=== PATIENT | male | born 1950 | race Caucasian/White ===

== ENCOUNTER 2019-05-12 21:31 | Emergency (ER) | payer OTHER ==
[2019-05-12 22:02] VITALS: BP 0/0; PULSE 0; TEMP 99.8; BMI 29.5
--- NOTE | 2019-05-12 22:03 | PDOC ---
Attending Attestation - Resident Resident Name: Edmund Mays - ED Attending Attestation I have performed the following: I have examined & evaluated the patient, The case was reviewed & discussed with the resident, I agree w/resident's findings & plan - HPI HPI: 05/12/19 21:58 Pt comes in cardiac arrest. He is covered in stool. He stooled himself at home and en route to the bathroom he passed out. Daughter and called EMS; CPR inprogress; astystole. At some point pt had ROSC. Pt was down 50 min prioro to arrival; never cardioverted; no Vtach or vfib; received 7 epi and bicard. FS was 147; pt received bicarb; glc; epi x 2 here; Thumper on chest. Pt came intubated. Good breath sounds bilaterally Pt has IO line in plce by EMS; we placed IV in right arm Rectal core temp 98.9F Sono fast normal SOno heart shows no tamponade No cardiac activity TIME OF 9:45PM 05/12/2019 - Physicial Exam PE: 05/12/19 22:02 Eyes fixed and dilated normal temp covered in diarrhea breath sounds with ambu bag equal No rashes no cyanosis Abd soft NT ND Ext no edema - Medical Decision Making 05/12/19 22:03 . ME called by the resident; they refused the case and gave us a case # [id number]. Paperwork will be completed by Dr. Shaw.
--- NOTE | 2019-05-12 22:45 | PDOC ---
History of Present Illness - General Chief Complaint: Cardiac Arrest Stated Complaint: CARDIAC ARREST Time Seen by Provider: 05/12/19 21:50 History Source: EMS, Old Records Exam Limitations: Clinical Condition - History of Present Illness Initial Comments: HPI: 68 y/o male presenting to [facility] ER from home in cardiac arrest. EMS reports the pt was found on the floor of the bathroom in a sinus PEA arrest. CPR was initiated, pt was intubated, and right tibial IO was placed. Brief period of ROSC with V-Tach rhythm lasting less than 1 minute. Pt received a total of 7 epinephrine, 1x bicarb, and 1x amiodarone push enroute to the hospital. Estimated downtime of 40 minutes prior to arrival. EMS reports no signs of foul play or trauma. Medical Hx: - Atrial fibrillation - Heart failure (s/p AICD 2008) Review of Systems: Unable to obtain secondary to pts acute clinical condition. Physical Examination: Vital signs and nursing notes reviewed. Constitutional- Obese adult male with Harris device attached to chest. Covered in fecal matter. Head- Normocephalic. No obvious external signs of trauma. Eyes- Pupils fixed and dilated bilaterally. Throat- ET Tube in place. Cardiovascular / Chest- No femoral or jugular pulse appreciated. Respiratory- Apenic. Breath sounds present bilaterally. Gastrointestinal- abdomen is soft and nondistended. Neuro- No purposeful movement. Skin- Dry and intact. MDM: On arrival to the hospital, the pt was met in ED resus room. CPR with Harris Device continued. IV access established. Continuous waveform capnography reviewed EtCO2 ranging from 10-12. Palpable femoral pulse appreciated with CPR. Multiple rounds of ACLS performed. See nursing documentation for further detail. Persistent asystole noted during rhythm checks. No cardiac activity noted on POCUS. Time of called at 21:45. No family present at bedside. .12 May 2019 22:04 PM Telephone conversation with pts , Marline Quiñonez. Informed of her husbands . 12 May 2019 22:[address] conversation [address] Dr[address] Shaw, pts PCP. Informed of the pts . Will complete the certificate. 12 May 2019 22:16 PM Telephone conversation with [facility] Claim Manager Guevara. Declined ME hold. . RN contacted [facility]. Will pursue organ donation. Past History - Past Medical History Allergies/Adverse Reactions: Allergies Allergy/AdvReac Type Severity Reaction Status Date / Time No Known Allergies Allergy Verified 09/16/15 11:22 Home Medications: Ambulatory Orders Cholecalciferol (Vitamin D3) [Vitamin D] 1,000 unit PO DAILY 09/16/15 Cyanocobalamin Vit B-12 Inj. [Redisol] 1,000 mcg IM DAILY 09/16/15 Dexamethasone 2 mg PO DAILY 09/16/15 Digoxin [Lanoxin] 250 mcg PO DAILY 09/16/15 Famotidine [Pepcid] 20 mg PO DAILY 09/16/15 Folic Acid 1 mg PO DAILY 09/16/15 Ibuprofen [Advil -] 200 mg PO TID 09/16/15 Lisinopril [Prinivil] 5 mg PO DAILY 09/16/15 Metoprolol Tartrate [Lopressor -] 25 mg PO DAILY 09/16/15 Pantoprazole Sodium [Protonix -] 40 mg PO DAILY 09/16/15 Pregabalin [Lyrica -] 25 mg PO DAILY 09/16/15 Spironolactone [Aldactone] 25 mg PO DAILY 09/16/15 Tizanidine HCl [Zanaflex] 2 mg PO DAILY 09/16/15 Cardiac Disorders: Yes (afib) COPD: No HTN: Yes - Surgical History Cardiac Surgery: Yes (debrillator) - Psycho Social/Smoking Cessation Hx Smoking History: Never smoked Have you smoked in the past 12 months: No Hx Alcohol Use: Yes ("every once in a while") Drug/Substance Use Hx: No *Physical Exam - Vital Signs Last Vital Signs Temp Pulse Resp BP Pulse Ox 99.8 F H 0 L 0 L 0/0 L 05/12/19 21:51 05/12/19 21:51 05/12/19 21:51 05/12/19 21:51 Medical Decision Making - Critical Care Time Total Critical Care Time (minutes): 45 Critical Care Statement: The care of this patient involved high complexity decision making to prevent further life threatening deterioration of the patient 's condition and/or to evaluate & treat vital organ system(s) failure or risk of failure. Discharge - Discharge Information Problems reviewed: Yes Clinical Impression/Diagnosis: Cardiac arrest Condition: Worsened Disposition: - Follow up/Referral Referrals: Ady Shaw MD [Primary Care Provider] - - Patient Discharge Instructions - Post Discharge Activity
== END 2019-05-13 00:57 | disposition expired ==
LOC: JER 21:31
PROC: 5A02216 Assistance with Cardiac Output using Other Pump, Continuous (ICD-10-PCS; principal; 2019-05-12)
DX: I46.9 Cardiac arrest, cause unspecified (principal); I25.10 Atherosclerotic heart disease of native coronary artery without angina pectoris; I10 Essential (primary) hypertension; I48.91 Unspecified atrial fibrillation; Z95.810 Presence of automatic (implantable) cardiac defibrillator
CPT/HCPCS: 92950; 99284-25